=== PATIENT | male | born 1935 | race Caucasian/White ===

== ENCOUNTER 2017-08-19 17:37 | Emergency (ER) | payer OTHER, MEDICARE ==
--- NOTE | 2017-08-19 17:42 | PDOC ---
History of Present Illness - History of Present Illness Initial Comments: 08/19/17 18:23 82 y/o with a PMH of atrial fibrillation on coumadin, recent URI presents to the ED with productive cough for 3 days. Patient reports he is coughing up green /brown sputum. Patient also had a fever today (Tmax: 101.5). He took Mucinex with Acetaminophen approximately 40 minutes prior to arrival. He recently had a URI and was on antibiotics last month. He has had a runny nose since URI that never resolved. Denies chest pain, SOB, marvin, leg swelling, calf pain, hemoptysis. Denies nausea, vomiting, diarrhea. Denies urinary complaints. <Masha Prieto - Last Filed: 08/19/17 18:23> <Edenilson Wood - Last Filed: 08/19/17 18:38> - General Chief Complaint: Respiratory Stated Complaint: COUGH & FEVER Time Seen by Provider: 08/19/17 17:41 Past History <Masha Pireto - Last Filed: 08/19/17 18:23> - Past Medical History Cancer: Yes (SKIN) Cardiac Disorders: Yes (ATRIAL FIBRILLATION, paroxysmal) - Immunization History Td Vaccination: No Immunization Up to Date: No - Suicide/Smoking/Psychosocial Hx Smoking Status: No Smoking History: Never smoked Number of Cigarettes Smoked Daily: 0 Hx Alcohol Use: No Substance Use Type: None <Edenilson Wood - Last Filed: 08/19/17 18:38> - Past Medical History Allergies/Adverse Reactions: Allergies Allergy/AdvReac Type Severity Reaction Status Date / Time No Known Allergies Allergy Verified 08/19/17 17:56 Home Medications: Ambulatory Orders Atenolol [Tenormin] 25 mg PO HS 08/19/17 Brimonidine Tartrate [Alphagan 0.15% -] 1 drop OU TID 08/19/17 Finasteride 5 mg PO DAILY 08/19/17 Oseltamivir Phosphate [Tamiflu -] 75 mg PO BID #10 capsule 08/19/17 Simvastatin 40 mg PO HS 08/19/17 Travoprost [Travatan Z] 1 drop OP DAILY 08/19/17 Warfarin Na [Coumadin] 2.5 mg PO TUTH 08/19/17 Warfarin Na [Coumadin] 5 mg PO SUMOWEFRSA 08/19/17 Respiratory Specific PMHX - Complaint Specific PMHX Angina: No Pulmonary Embolus: No <Edenilson Wood - Last Filed: 08/19/17 18:38> Review of Systems - Review of Systems Comments:: 08/19/17 18:23 CONSTITUTIONAL: + fever. No reported: Chills, Diaphoresis, Generalized Weakness , Malaise, Loss of Appetite HEENT: + rhinorrhea, No reported: Nasal Congestion, Throat Pain, Throat Swelling , Difficulty Swallowing, Mouth Swelling, Ear Pain, Eye Pain, Visual Changes CARDIOVASCULAR: No reported: Chest Pain, Syncope, Palpitations, Irregular Heart Rate, Lightheadedness, Peripheral Edema RESPIRATORY: + productive cough. No reported: Shortness of Breath, SOB with Exertion, Orthopnea, Wheezing, Stridor, Hemoptysis GASTROINTESTINAL: No reported: Abdominal pain, Abdominal Distension, Nausea, Vomiting, Diarrhea, Constipation, Melena, Hematochezia GENITOURINARY: No reported: Dysuria, Frequency, Urgency, Hesitancy, Flank Pain, Genital Pain MUSCULOSKELETAL: No reported: Myalgia, Arthralgia, Joint Swelling, Back pain, Neck Pain SKIN: No reported: Rash, Itching, Pallor HEMATOLOGIC/IMMUNOLOGIC: No reported: Easy Bleeding, Easy Bruising, Lymphadenopathy, Frequent infections ENDOCRINE: No reported: Unexplained Weight Gain, Unexplained Weight Loss, Heat Intolerance, Cold Intolerance NEUROLOGIC: No reported: Headache, Focal Weakness, Paresthesias, Vertigo, Lightheadedness, Unsteady Gait, Seizure, Mental Status Changes, Incontinence PSYCHIATRIC: No reported: Anxiety, Depression <Masha Prieto - Last Filed: 08/19/17 18:23> *Physical Exam - Vital Signs Last Vital Signs Temp Pulse Resp BP Pulse Ox 98.6 F 75 18 132/62 96 08/19/17 17:38 08/19/17 17:38 08/19/17 17:38 08/19/17 17:38 08/19/17 17:38 - Physical Exam Comments: 08/19/17 18:23 GENERAL: The patient is awake, alert, and fully oriented, Nontoxic - in no acute distress. HEAD: Normocephalic, atraumatic. EYES: extraocular movements intact, sclera anicteric, conjunctiva clear. ENT: Normal voice, Moist mucous membranes. NECK: Normal range of motion, No JVD LUNGS: Breath sounds equal, clear to auscultation bilaterally. No wheezes, no rhonchi, no rales. HEART: Irregular rate and rhythm, normal S1 and S2 without murmur, rub or gallop. ABDOMEN: Soft, nontender, normoactive bowel sounds. No guarding, no rebound. No masses. No CVA tenderness EXTREMITIES: Normal range of motion, no edema. no calf tendrness,negative homans. NEUROLOGICAL: No facial asymmetry, Normal speech, normal gait. PSYCH: Normal mood, normal affect. SKIN: Warm, Dry, normal turgor <Masha Prieto - Last Filed: 08/19/17 18:23> Medical Decision Making - Medical Decision Making 08/19/17 18:00 82y M hx of afib on coumadin presents with cough and minimal nasal congestion. 08/19/17 18:33 cxr negative for pna will tx supportively suspect nasopharyngitis will have pt fu with pmd in 2-3 days return precautions were discussed I discussed the physical exam findings, ancillary test results and final diagnoses with the patient. I answered all of the patient's questions. The patient was satisfied with the care received and felt comfortable with the discharge plan and treatment plan. The patient will call their primary care physician within 24 hours to arrange follow-up and will return to the Emergency Department with any new, persistent or worsening symptoms. <Edenilson Wood - Last Filed: 08/19/17 18:38> *DC/Admit/Observation/Transfer - Attestations Scribe Attestion: 08/19/17 18:23 Documentation prepared by Masha Prieto, acting as nuclear medical tech for Edenilson Wood MD. <Masha Prieto - Last Filed: 08/19/17 18:23> - Discharge Dispostion Admit: No <Edenilson Wood - Last Filed: 08/19/17 18:38> Diagnosis at time of Disposition: Influenza-like illness - Discharge Dispostion Disposition: HOME Condition at time of disposition: Good - Referrals Referrals: Jaciel Guadalupe MD [Staff Physician] - - Patient Instructions Printed Discharge Instructions: DI for Viral Upper Respiratory Infection -- Adult Additional Instructions: Return to the emergency department immediately with ANY new, persistent or worsening symptoms. You MUST call and follow up with your doctor tomorrow for further evaluation of your symptoms. Results were discussed with you. Please make sure your doctor reviews the results of your emergency evaluation. If you had any xrays during your visit, it was read preliminarily by myself, a Radiologist will review it and if there are any additional findings we will call you. Print Language: STATELESS
[2017-08-19 18:01] VITALS: BP 132/62; PULSE 75; TEMP 98.6; BMI 25.7
[2017-08-19] MEDS ORDERED: OSELTAMIVIR PHOSPHATE 75 MG CAPSULE PO ONE (18:37)
[2017-08-19] MEDS ORDERED: OSELTAMIVIR PHOSPHATE 75 MG CAPSULE ONE (18:54)
== END 2017-08-19 18:59 | disposition home or self-care (01) ==
LOC: FER 17:37
DX: J11.1 Influenza due to unidentified influenza virus with other respiratory manifestations (principal); I48.91 Unspecified atrial fibrillation; Z79.01 Long term (current) use of anticoagulants
CPT/HCPCS: 71046-TC; 99281-25

== ENCOUNTER 2019-08-20 22:40 | Emergency (ER) | payer OTHER, MEDICARE ==
[2019-08-20 22:54] VITALS: BP 133/65; PULSE 63; TEMP 97.5; BMI 28.3
--- NOTE | 2019-08-20 23:27 | PDOC ---
History of Present Illness - General Chief Complaint: Pain, Acute Stated Complaint: LLL INJURY Time Seen by Provider: 08/20/19 22:46 - History of Present Illness Initial Comments: This 84-year-old man with a history of atrial fibrillation, on Coumadin, is brought in by his family with a history of injury to the lateral aspect of his left lower leg. Approximately 4 days prior to presentation, the patient scraped the area of his left lower leg against a car door. He sustained an abrasion and bruise in the area. Patient and family state that the bleeding from the abrasion stopped promptly. He is in the ER [facility] for evaluation of firm area below the abrasion. He denies significant pain or discharge from the area. He has no fever/chills. He sustained no other injury at the time he is scraped his leg against the door except for the abrasion. Medications as noted below. No known allergies Past History - Past Medical History Allergies/Adverse Reactions: Allergies Allergy/AdvReac Type Severity Reaction Status Date / Time No Known Allergies Allergy Verified 08/19/17 17:56 Home Medications: Ambulatory Orders Atenolol [Tenormin] 25 mg PO HS 08/19/17 Brimonidine Tartrate [Alphagan 0.15% -] 1 drop OU TID 08/19/17 Finasteride 5 mg PO DAILY 08/19/17 Oseltamivir Phosphate [Tamiflu -] 75 mg PO BID #10 capsule 08/19/17 Simvastatin 40 mg PO HS 08/19/17 Travoprost [Travatan Z] 1 drop OP DAILY 08/19/17 Warfarin Na [Coumadin] 2.5 mg PO TUTH 08/19/17 Warfarin Na [Coumadin] 5 mg PO SUMOWEFRSA 08/19/17 Cancer: Yes (SKIN) Cardiac Disorders: Yes (ATRIAL FIBRILLATION, paroxysmal) COPD: No Disorders: Yes HTN: Yes - Immunization History Td Vaccination: No Immunization Up to Date: No - Psycho Social/Smoking Cessation Hx Smoking Status: No Smoking History: Unknown if ever smoked Have you smoked in the past 12 months: No Number of Cigarettes Smoked Daily: 0 Information on smoking cessation initiated: No Hx Alcohol Use: No Drug/Substance Use Hx: No Substance Use Type: None Review of Systems - Review of Systems Able to Perform ROS?: Yes Comments:: 12 point review of systems is negative except for what is noted in the history of present illness *Physical Exam - Vital Signs Last Vital Signs Temp Pulse Resp BP Pulse Ox 97.5 F L 63 14 133/65 97 08/20/19 22:51 08/20/19 22:51 08/20/19 22:51 08/20/19 22:51 08/20/19 22:51 - Physical Exam GENERAL: Elderly man, alert and oriented x3, no acute distress HEAD: Normal with no signs of trauma. EYES: PERRLA, EOMI, sclera anicteric, conjunctiva clear. EXTREMITIES: Left lower leg- NEUROLOGICAL: Cranial nerves II through XII grossly intact. Normal speech. No focal neurological deficits. MUSCULOSKELETAL: Back non-tender to palpation, no CVA tenderness SKIN: Warm, Dry, normal turgor, no rashes or lesions noted. Discharge - Discharge Information Problems reviewed: Yes Clinical Impression/Diagnosis: Superficial hematoma Condition: Stable Disposition: HOME - Follow up/Referral - Patient Discharge Instructions Patient Printed Discharge Instructions: DI for Hematoma (Bruise) Additional Instructions: Gentle warmth to area of wound 2-3 times a day Can apply Neosporin/bacitracin ointment to the healing abrasion Return to ER or see your doctor if area becomes more swollen/painful/warm to touch - Post Discharge Activity
== END 2019-08-20 23:49 | disposition home or self-care (01) ==
LOC: FER 22:40
DX: S80.12XA Contusion of left lower leg, initial encounter (principal); W22.09XA Striking against other stationary object, initial encounter; Y93.89 Activity, other specified; Y92.89 Other specified places as the place of occurrence of the external cause; I48.91 Unspecified atrial fibrillation; I10 Essential (primary) hypertension; Z79.01 Long term (current) use of anticoagulants
CPT/HCPCS: 99283-25

== ENCOUNTER 2020-05-26 20:09 | Emergency (ER) | payer OTHER, MEDICARE ==
[2020-05-26 20:29] VITALS: BP 167/82; PULSE 62; TEMP 97.8; BMI 27.4
--- NOTE | 2020-05-26 20:38 | PDOC ---
History of Present Illness - General Chief Complaint: Edema Stated Complaint: RIGHT FOOT PAIN AND SWELLING Time Seen by Provider: 05/26/20 20:12 - History of Present Illness Initial Comments: 05/26/20 21:00 This 85-year-old man with a history of A. fib (on Coumadin)HLD/HTN presents with 2 days of right foot edema, extending to the lower leg over the last day. He describes mild discomfort in the foot; no history of trauma or overuse. No fever or chills no history of gout. He denies any open wound/ulcers of the toes or foot. No previous history of cellulitis/MRSA or other resistant organism infection or colonization. Medications as noted below No known allergies Non-smoker; no daily alcohol or other recreational drug use Past History - Medical History Allergies/Adverse Reactions: Allergies Allergy/AdvReac Type Severity Reaction Status Date / Time No Known Allergies Allergy Verified 05/26/20 20:15 Home Medications: Ambulatory Orders Atenolol [Tenormin] 25 mg PO HS 08/19/17 Brimonidine Tartrate [Alphagan 0.15% -] 1 drop OU TID 08/19/17 Finasteride 5 mg PO DAILY 08/19/17 Simvastatin 40 mg PO HS 08/19/17 Warfarin Na [Coumadin] 2.5 mg PO ASDIR 08/19/17 Warfarin Na [Coumadin] 5 mg PO ASDIR 08/19/17 Clindamycin [Cleocin -] 300 mg PO TID #21 capsule 05/26/20 Cancer: Yes (SKIN) Cardiac Disorders: Yes (ATRIAL FIBRILLATION, paroxysmal) COPD: No Disorders: Yes HTN: Yes Other medical history: GLAUCOMA,CATARACT,PROSTATE - Immunization History Td Vaccination: No Immunization Up to Date: No - Psycho-Social/Smoking History Smoking Status: No Smoking History: Never smoked Have you smoked in the past 12 months: No Number of Cigarettes Smoked Daily: 0 Information on smoking cessation initiated: No - Substance Abuse Hx (Audit-C & DAST Scrn) How often the patient has a drink containing alcohol: Never Score: In Men: 4 or > Positive; In Women: 3 or > Positive: 0 Screen Result (Pos requires Nsg. Audit-10AR): Negative In the last yr the pt used illegal drug/Rx for NonMed reason: No Score: Yes response is considered Positive: 0 Screen Result (Positive result requires Nsg. DAST-10): Negative Review of Systems - Review of Systems Able to Perform ROS?: Yes Comments:: 12 point review of systems is negative except for what is noted in the history of present illness *Physical Exam - Vital Signs Last Vital Signs Temp Pulse Resp BP Pulse Ox 97.8 F 62 16 167/82 100 05/26/20 20:10 05/26/20 20:10 05/26/20 20:10 05/26/20 20:10 05/26/20 20:10 - Physical Exam GENERAL: Elderly man, alert and oriented x3, no acute distress HEAD: Normal with no signs of trauma. EYES: PERRLA, EOMI, sclera anicteric, conjunctiva clear. ENT: Ears normal, nares patent, oropharynx clear without exudates. Moist mucous membranes. NECK: Normal range of motion, supple without lymphadenopathy, JVD, or masses. LUNGS: Breath sounds equal, clear to auscultation bilaterally. No wheezes, and no crackles. HEART:Regular rate and rhythm, normal S1 and S2 without murmur, rub or gallop. ABDOMEN:.normal bowel sounds No guarding,tenderness or rebound.No masses No distention. EXTREMITIES: Right lower extremitymild erythema, mild edema, minimal tenderness with faint ecchymosis at the base of second and third toes; no deformity Erythema and mild edema extends to proximal lower leg; small (0.5 cm) shallow ulcer mid anterior surface(no discharge) No Lymphangitic streaking, no fluctuance, no cords Left lower extremityno erythema/edema/tenderness Remainder the extremity exam is normal NEUROLOGICAL: Cranial nerves II through XII grossly intact. Normal speech. No focal neurological deficits. Medical Decision Making - Medical Decision Making This 85-year-old man with a history of A. fib, HTN/HLD presents with few day history of discomfort, edema and mild erythema of the right lower leg (patient had symptoms first in the foot and extended into lower leg over the last 24 hours). No fever/chills and no previous history of cellulitis/DVT. Exam as noted above. This patient has mild tenderness of the right forefoot, although he has no history of trauma to the area, right foot x-ray performed to evaluate for occult fracture or other bony changes: Preliminary interpretation by nallely evidence of fracture, dislocation or other acute bony pathology Although the patient is on anticoagulation (Coumadin) for his A. fib, Doppler duplex ultrasound of his right lower extremity was performed to evaluate for acute DVT. Image interpreted by Dr. Cm of the radiology staff: No evidence of DVT Clinical presentation most consistent with early cellulitis of the right lower leg. Patient will be started on clindamycin 300 mg 3 times a day for 1 week with first dose given here in the emergency room. Patient should keep his leg elevated as much as possible. He is scheduled to see his PMD (in [place]) within the next week for preoperative clearance for cataract surgery. He should follow-up for evaluation of the cellulitis during that time. If he has increase in pain, redness, swelling or develops fever/chills prior to his follow-up with his PMD, he should return to the emergency room Discharge - Discharge Information Problems reviewed: Yes Clinical Impression/Diagnosis: Cellulitis of lower leg Condition: Stable Disposition: HOME - Additional Discharge Information Prescriptions: Clindamycin [Cleocin -] 300 mg PO TID #21 capsule - Follow up/Referral - Patient Discharge Instructions Patient Printed Discharge Instructions: Cellulitis Additional Instructions: Clindamycin 300 mg 3 times a day for 1 week Elevate right lower leg is much as possible Follow-up with your doctor within the next week as scheduled Return to ER if you have worsening pain, swelling, redness in leg or if you develop fever/chills - Post Discharge Activity
[2020-05-26] MEDS ORDERED: CLINDAMYCIN HCL 300 MG CAPSULE PO ONE (22:52)
[2020-05-26] MEDS ORDERED: CLINDAMYCIN HCL 150 MG CAPSULE (FP) ONE (22:54)
== END 2020-05-26 23:01 | disposition home or self-care (01) ==
LOC: FER 20:09
DX: L03.115 Cellulitis of right lower limb (principal)
CPT/HCPCS: 73630-TC-RT-FY; 93971-TC; 99284-25

== ENCOUNTER 2021-01-12 15:32 | Emergency (ER) | payer OTHER, MEDICARE ==
[2021-01-12 15:50] VITALS: BP 142/71; PULSE 71; TEMP 98.3; BMI 27.4
[2021-01-12] MEDS ORDERED: DIPHTH,PERTUSS(ACELL),TET 0.5 ML DISP.SYRIN IM ONE ×2 (15:55→16:12)
== END 2021-01-12 16:19 | disposition home or self-care (01) ==
LOC: FER 15:32
PROC: 0HQFXZZ Repair Right Hand Skin, External Approach (ICD-10-PCS; principal; 2021-01-12)
PROC: 3E0234Z Introduction of Serum, Toxoid and Vaccine into Muscle, Percutaneous Approach (ICD-10-PCS; 2021-01-12)
DX: S61.411A Laceration without foreign body of right hand, initial encounter (principal)
CPT/HCPCS: 90471; 90715; 99284-25

== ENCOUNTER 2021-01-22 11:20 | Emergency (ER) | payer OTHER, MEDICARE ==
[2021-01-22 11:32] VITALS: BP 151/72; PULSE 51; TEMP 98.2; BMI 27.4
== END 2021-01-22 12:11 | disposition home or self-care (01) ==
LOC: FER 11:20
DX: T81.31XA Disruption of external operation (surgical) wound, not elsewhere classified, initial encounter (principal)
CPT/HCPCS: 99283-25

== ENCOUNTER 2021-02-05 09:50 | Emergency (ER) | payer OTHER, MEDICARE ==
[2021-02-05 09:58] VITALS: BP 156/80; PULSE 61; TEMP 97.8; BMI 25.0
== END 2021-02-05 11:05 | disposition home or self-care (01) ==
LOC: FER 09:50
DX: Z48.00 Encounter for change or removal of nonsurgical wound dressing (principal)
CPT/HCPCS: 99281-25

== ENCOUNTER 2021-11-05 04:14 | Emergency (ER) | payer OTHER, MEDICARE ==
[2021-11-05 04:38] VITALS: TEMP 98.3; BMI 25.7
[2021-11-05 07:44] VITALS: BP 168/62; PULSE 57
[2021-11-05 08:09] LABS: EOS % 5.2 % (0-4.5); HEMATOCRIT 34.6 % (35.4-49); LYMPH % 9.3 % (8-40); MCH 28.4 pg (25.7-33.7); MCHC 34.6 g/dl (32.0-35.9); MEAN PLT VOLUME 6.7 fl (7.5-11.1); MONO % 14.6 % (3.8-10.2); NEUT % 69.9 % (42.8-82.8); PLATELET COUNT 160 10^3/uL (134-434); RBC 4.22 M/mm3 (4.00-5.60); RDW 16.1 % (11.9-15.9); WHITE BLOOD COUNT 4.6 K/mm3 (4.0-10.0)
[2021-11-05 08:17] LABS: INR 1.11 (0.83-1.09); PROTHROMBIN TIME (PATIENT) 12.8 SEC (9.7-13.0)
[2021-11-05 08:34] LABS: ALBUMIN 3.7 g/dl (3.4-5.0)
[2021-11-05 08:39] LABS: BILIRUBIN,TOTAL 0.8 mg/dL (0.2-1); TOT PROT 7.2 g/dl (6.4-8.2)
[2021-11-05] MEDS ORDERED: SODIUM CHLORIDE 500 ML IV STA (08:54)
[2021-11-05] MEDS ORDERED: ACETAMINOPHEN 325 MG TABLET (FP) PO ONE (10:45)
[2021-11-05] MEDS ORDERED: CLINDAMYCIN HCL 150 MG CAPSULE (FP) PO ONE (10:52)
[2021-11-05] MEDS ORDERED: ACETAMINOPHEN 325 MG TABLET (FP) ONE (10:53)
[2021-11-05] MEDS ORDERED: CLINDAMYCIN HCL 150 MG CAPSULE (FP) ONE (10:55)
== END 2021-11-05 11:10 | disposition home or self-care (01) ==
LOC: JER 04:14
PROC: 3E0337Z Introduction of Electrolytic and Water Balance Substance into Peripheral Vein, Percutaneous Approach (ICD-10-PCS; principal; 2021-11-05)
DX: S00.01XA Abrasion of scalp, initial encounter (principal); L03.811 Cellulitis of head [any part, except face]; Y99.8 Other external cause status
CPT/HCPCS: 36415; 70481-TC; 80053; 85025; 85610; 85730; 87040; 99285-25; Q9967

== ENCOUNTER 2022-07-23 22:04 | Emergency (ER) | payer OTHER, MEDICARE ==
[2022-07-23] MEDS ORDERED: SODIUM PHOSPHATE/NA BIPHOS 133 ML ENEMA PR ONE (22:40)
[2022-07-23 23:01] VITALS: BP 177/88; PULSE 79; RESP 18; TEMP 97; BMI 27.1
== END 2022-07-23 23:51 | disposition home or self-care (01) ==
LOC: FER 22:04
DX: K59.00 Constipation, unspecified (principal)
CPT/HCPCS: 99283-25

== ENCOUNTER 2024-04-06 20:50 | Emergency (ER) | payer OTHER, MEDICARE ==
[2024-04-06 21:08] VITALS: BP 158/58; PULSE 76; RESP 16; TEMP 98; BMI 26.5
== END 2024-04-06 21:04 | disposition home or self-care (01) ==
LOC: FER 20:50
DX: T16.1XXA Foreign body in right ear, initial encounter (principal)
CPT/HCPCS: 99282-25